=== PATIENT | female | born 1990 | race Two or more races ===

== ENCOUNTER 2022-07-06 10:17 | Emergency (ER) | payer SELFPAY ==
[~2022-07-06] VITALS: Ht 160 cm; Wt 49.1 kg
[2022-07-06 13:14] VITALS: BP 126/67
[2022-07-06] MEDS ORDERED: PRED20TA2 PO (13:26)
[2022-07-06] MEDS ORDERED: methylPREDNISolone SOD SUCC 125 MG/2 ML VL IM ONE (13:30)
[2022-07-06] MEDS ORDERED: KETOROLAC TROMETH 60MG/2ML VIAL IM ONE (13:30)
== END 2022-07-06 13:50 | disposition home or self-care (01) ==
LOC: ER 10:17
DX: M19.90 Unspecified osteoarthritis, unspecified site (principal); Z90.49 Acquired absence of other specified parts of digestive tract; Z88.1 Allergy status to other antibiotic agents; Z88.2 Allergy status to sulfonamides
CPT/HCPCS: 96372; 99284; J1885; J2930

== ENCOUNTER 2023-02-27 17:56 | Emergency (ER) | payer MEDICAID ==
[~2023-02-27] VITALS: Ht 160 cm; Wt 48.0 kg
[~2023-02-27 17:56] MED LIST: PRED20TA2 PO
[2023-02-27 19:45] LABS: Urine Bacteria NONE SEEN /hpf (None Seen); Urine Blood Negative /uL (Negative); Urine Specific Gravity 1.022 (1.001-1.035); Urine WBC <1 /hpf (0 - 5)
[2023-02-27 20:41] VITALS: BP 136/85
[2023-02-27] MEDS ORDERED: KETOROLAC TROMETH 30 MG/ML 1ML VIAL IM ONE (21:45)
[2023-02-27] MEDS ORDERED: ACE3T PO (21:45)
== END 2023-02-27 22:03 | disposition home or self-care (01) ==
LOC: ER 17:56
DX: M54.59 Other low back pain (principal); M19.90 Unspecified osteoarthritis, unspecified site; G89.29 Other chronic pain; F12.10 Cannabis abuse, uncomplicated; Z88.1 Allergy status to other antibiotic agents; Z88.2 Allergy status to sulfonamides
CPT/HCPCS: 81001; 96372; 99283; J1885